=== PATIENT | female | born 1975 | race African-American/Black ===

== ENCOUNTER 2023-09-03 14:28 | Emergency (ER) | payer MEDICAID ==
[~2023-09-03] VITALS: Ht 160 cm; Wt 95.3 kg
[2023-09-03 14:28] VITALS: BP_SYST 155; PULSE 83; RESP 19; TEMP 97.8; O2SAT 100
[2023-09-03] MEDS ORDERED: NABU-140 PO ×2 (15:57)
[2023-09-03] MEDS ORDERED: ACET1TAB93 PO (15:58)
== END 2023-09-03 16:17 | disposition home or self-care (01) ==
LOC: SED 14:28
DX: S83.92XA Sprain of unspecified site of left knee, initial encounter (principal); I10 Essential (primary) hypertension; Z88.6 Allergy status to analgesic agent; Z79.899 Other long term (current) drug therapy; W50.0XXA Accidental hit or strike by another person, initial encounter; Y93.89 Activity, other specified; Y92.89 Other specified places as the place of occurrence of the external cause; Y99.8 Other external cause status
CPT/HCPCS: 73560-TC; 99283